=== PATIENT | female | born 1960 | race Caucasian/White ===

== ENCOUNTER 2017-01-22 11:33 | Outpatient (CLI) | payer OTHER ==
--- NOTE | 2017-01-22 23:34 | Diagnostic Imaging Report ---
ASHU RODRIGUEZ [facility] [address] [facility] [address] [address] Report Submission Date: Jan 22, 2017 1:25:27 PM CDT Patient Study Name: NIMISHA PEREZ Date: Jan 22, 2017 11:55:57 AM CDT Modality Type: US Gender: F Description: UNILAT LTD STDY EXT VEINS : 58 Institution: [facility] Physician: ASHU RODRIGUEZ Duplex imaging of the left lower extremity Clinical history: Swelling and redness for 2 weeks. Rule out deep venous thrombosis. Technique: Real time sonography of the left lower extremity is performed in transverse and longitudinal views. Doppler interrogation and color flow imaging are additionally used. Findings: There are normal Doppler waveforms in the interrogated vessels with normal respiratory fluctuation and augmentation. No echogenic thrombus is identified within the vessel lumen. The veins compress normally. Interstitial edema is evident in the calf. Impression: 1. No evidence of deep venous thrombosis. 2. Interstitial edema in the calf. Electronically signed on Jan 22, 2017 1:25:27 PM CDT by: Billy LOCKE
== END 2017-01-22 11:34 ==
LOC: RAD 11:33
PROVIDERS: ATTEND Family Medicine
DX: M79.89 Other specified soft tissue disorders (principal)
CPT/HCPCS: 93971

== ENCOUNTER 2017-03-05 22:20 | Observation (INO) | payer BC, OTHER ==
[2017-03-05] MEDS ORDERED: IPRATROPIUM/ALBUTEROL SULFATE 3 ML AMPUL.NEB NEB ONE (22:30)
[2017-03-05] MEDS ORDERED: methylPREDNISolone SOD SUCC 125 MG/2 ML VIAL ONE (22:39)
[2017-03-05 23:07] LABS: MEAN CORPUSCULAR HEMOGLOBIN 30.6 pg (28.0-34.0); MEAN CORPUSCULAR VOLUME 89.8 fl (80.0-100.0)
[2017-03-05 23:17] LABS: eGFR (African) > 60; eGFR (Non-African) > 60
[2017-03-05] MEDS ORDERED: 0.9 % SODIUM CHLORIDE 500 ML IV ONE (23:28)
--- NOTE | 2017-03-06 01:02 | Diagnostic Imaging Report ---
RAMOS GIANG- GINGER [address] [facility] [address] [place], [place]. [address] Report Submission Date: Mar 05, 2017 11:28:10 PM CDT Patient Study Name: NIMISHA PEREZ Date: Mar 05, 2017 11:14:46 PM CDT Modality Type: CR Gender: F Description: CHEST : 58 Institution: Physician: RAMOS GIANG- ED Chest, 2 view History: SOB, WORSENED TODAY Findings: The heart size is normal. The lungs are clear are hyperinflated. There is no pleural effusion or pneumothorax identified. The osseous structures are normal. Impression: 1. No acute pulmonary disease. 2. Lung hyperinflation. Electronically signed on Mar 05, 2017 11:28:10 PM CDT by: Abraham LOCKE
--- NOTE | 2017-03-06 01:19 | ED Physician Documentation ---
Dyspnea - HISTORIAN Historian: patient - HPI Chief Complaint: Dyspnea Additional Information: Pt is a 56 yo female that presents via EMS for increasing SOB beginning this morning. Pt has significant history of COPD requiring O2 supplementation at night and PRN. States she woke up this morning with a minimally productive cough of white sputum and states she has progressively gotten more SOB as the day has gone on. She reports subjective fever but is afebrile upon arrival. Denies chest pain and N/V. Denies history of heart attack or CHF. Was given Duoneb in route with mild relief of symptoms. Pt continues to smoke cigarettes. Onset: hours Duration: continues in ED Initiating Event: upper respiratory illness Severity: moderate Associated Symptoms: fever (subjective), productive cough. denies: sweating, chest pain, chest discomfort, leg pain, calf pain, dizziness - ROS CONST: no problems EYES/ENT: none GI/: none MS/SKIN/LYMPH: none - PAST HX Lung Disease: asthma, COPD Cardiac Disease: none PE Risk Factors: denies: hx DVT, leg swelling, hx of PE Surgeries/Procedures: none Other History: none Allergies/Adverse Reactions: Allergies Allergy/AdvReac Type Severity Reaction Status Date / Time No Known Drug Allergies Allergy Verified 03/05/17 22:37 - SOCIAL HX Smoking History: cigarettes - FAMILY HX Family History: no significant history - REVIEWED ASSESSMENTS Nursing Assessment Reviewed: Yes Vitals Reviewed: Yes Progress - Progress Progress: Pt reports feeling a little better after a second Duoneb and Solu-Medrol. States she is breathing easier. Pt reports that she is feeling better but is still requiring continuous supplemental oxygen. While the patient does have oxygen at home - she would not have oxygen to get to her house, which is a [address] Had long discussion with patient and family and at this point I think an admission for observation overnight would be best for the patient. She and her family are understanding and agreeable. - EKG/XRAY/CT EKG: rhythm (tachycardic - 103bpm), no ST T wave changes XRAY: chest Xray Comments: No acute process, hyperinflation of lungs ED Results Lab/Radiology - Orders Orders: ED Orders Category Date Time Status CHEST P.A.&LAT 2 VIEWS [RAD] Stat Exams 03/05/17 Ordered CBC/PLATELET/DIFF Routine Lab 03/05/17 Ordered CMP Routine Lab 03/05/17 Ordered CREATINE KINASE Routine Lab 03/05/17 Ordered PT-INR Routine Lab 03/05/17 Ordered Ipratropium/Albuterol Sulfate [Duoneb] Med 03/05/17 22:30 Discontinued 3 ml NEB NOW ONE methylPREDNISolone SOD SUCC [Solu-MEDROL] 125 mg Med 03/05/17 22:31 Active 0.9 % Sodium Chloride [Sodium Chloride] 100 ml IV NOW EKG WITH COMPARISON Stat Ther 03/05/17 Ordered Dyspnea Physical Exam - EXAM General Appearance: mild distress EENT: pharynx normal, dry mucous membranes Neck: nml inspection Respiratory: speaks full sentences, decreased air movement, wheezes (throughout) CVS: no murmur, pulses equal, tachycardia Skin: skin rash (bilateral lower legs - present for one month) Extremities: non-tender, normal range of motion Neuro/Psych: oriented x3 Discharge Clincal Impression: COPD with acute exacerbation Condition: Stable Disposition: ADMITTED INPATIENT Decision to Admit: [id number] Decision Time: 00:46
[2017-03-06] MEDS ORDERED: IPRATROPIUM/ALBUTEROL SULFATE 3 ML AMPUL.NEB NEB PRN (01:35)
[2017-03-06] MEDS ORDERED: LEVOFLOXACIN 500 MG TABLET PO ONE ×2 (01:35→01:45)
[2017-03-06 02:02] VITALS: BMI 29.9
[2017-03-06] MEDS ORDERED: LEVOTHYROXINE SODIUM 25 MCG TABLET ONE (03:55)
[2017-03-06] MEDS ORDERED: predniSONE 20 MG TABLET PO ONE (03:55)
[2017-03-06] MEDS ORDERED: LEVOTHYROXINE SODIUM PO SCH ×2 (07:00→09:00)
--- NOTE | 2017-03-06 08:06 | Discharge Summary ---
Discharge Summary - Discharge Sumary Condition at Discharge: Stable Consultations this Visit: None Procedures this Visit: None Allergies/Adverse Reactions: Allergies Allergy/AdvReac Type Severity Reaction Status Date / Time No Known Drug Allergies Allergy Verified 03/05/17 22:37 Patient Problems: Current Active Problems Problem Status Onset COPD with acute exacerbation Acute Nicotine abuse Acute - Final Diagnosis (1) COPD with acute exacerbation Right or Left: Left, Right (2) Nicotine abuse Right or Left: Left, Right
[2017-03-06 08:45] VITALS: BP 125/69
[2017-03-06] MEDS ORDERED: FLUTICASONE/SALMETEROL 500-50 INHALER IH SCH (09:00)
[2017-03-06] MEDS ORDERED: predniSONE 10 MG TABLET PO SCH (09:00)
[2017-03-06 09:43] LABS: EOSINOPHILS % 1 % (0-7); MONOCYTES % 4 % (0-11); SEGMENTED NEUTROPHILS % 78 % (39-79)
== END 2017-03-06 11:00 | disposition home or self-care (01) ==
LOC: ED 22:20 → SOUTH 03-06 01:01
PROVIDERS: ADMIT Emergency Medicine; ATTEND Emergency Medicine
DX: J44.1 Chronic obstructive pulmonary disease with (acute) exacerbation (principal); F17.210 Nicotine dependence, cigarettes, uncomplicated
CPT/HCPCS: 71020; 80053; 82550; 85025; 85610; 93005; G0378; J2930; J7060; J7512; 96374; 96376; 99283; 99284

== ENCOUNTER 2017-07-08 14:36 | Outpatient (CLI) | payer OTHER ==
[2017-07-08 15:14] LABS: eGFR (African) > 60; eGFR (Non-African) > 60
== END 2017-07-08 14:37 ==
LOC: LAB 14:36
PROVIDERS: ATTEND Family Medicine
DX: Z86.39 Personal history of other endocrine, nutritional and metabolic disease (principal)
CPT/HCPCS: 36415; 80053

== ENCOUNTER 2017-08-18 14:07 | Outpatient (CLI) | payer OTHER ==
--- NOTE | 2017-08-18 15:32 | Diagnostic Imaging Report ---
BRAULIO WATKINS [facility] [address] [facility] [address] [place] [address]. [id number] Report Submission Date: Aug 18, 2017 3:30:24 PM [employer]ES [employer]PRESENT[employer]IVE [employer] Patient Study Name: NIMISHA PEREZ Date: Aug 18, 2017 2:14:15 PM [employer] Modality Type: CR Gender: F Description: CHEST : 58 Institution: [facility] Physician: BRAULIO WATKINS Chest, 2 view History: SHORTNESS OF BREATH AND COUGH X 4 DAYS, COPD, SMOKER Findings: Comparison is made to exam dated 03/05/2017. The heart size is normal. The lungs are hyperinflated. Possible nodule seen within the right upper lobe measuring 1.7 cm There is no pleural effusion or pneumothorax identified. The osseous structures are normal. Impression: 1. No acute pulmonary disease. 2. Emphysematous changes with possible nodule within the right upper lobe; however, this could also represent prominent costochondral cartilage of the 1st rib. 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
== END 2017-08-18 14:10 ==
LOC: RAD 14:07
PROVIDERS: ATTEND Physician Assistant
DX: J44.9 Chronic obstructive pulmonary disease, unspecified (principal)
CPT/HCPCS: 71020

== ENCOUNTER 2017-09-05 11:57 | Outpatient (CLI) | payer OTHER ==
--- NOTE | 2017-09-17 11:07 | CONSULTATION REPORT ---
REFERRING PHYSICIAN/PCP: JOSIAH Comer CONSULTING PHYSICIAN: Sandee Pino MD CHIEF COMPLAINT: "I am having difficulty breathing and I have a cough." PROBLEM LIST: 1. Chronic obstructive pulmonary disease (COPD), on home oxygen at 3 liters per nasal cannula. 2. Obstructive sleep apnea: Currently not using a CPAP. 3. Current tobacco use. HISTORY OF PRESENT ILLNESS: This is a 56-year-old female who states she does have a previous history of COPD and on September 01, she developed more shortness of breath and cough. She went to see her primary care provider and they initiated a prednisone taper and Augmentin. Patient states that this is currently helping her. She is now on prednisone 20 mg per day. In the recent past, she has also been given Augmentin and Bactrim as antibiotics , along with a prednisone taper. Recently, she was given Spiriva samples which she states she likes but that her insurance no longer covers it. She has had a history of thrush and takes nystatin p.r.n. She does have home oxygen at 3 liters per nasal cannula which she states she uses at night and as needed during the day. She admits that she does have a diagnosis of obstructive sleep apnea, but she does not like a CPAP and cannot afford it. She does respond to prednisone tapers but is mainly off prednisone. There has been no history of hemoptysis. She does have a cough currently productive of light lara sputum. Her energy level is okay. Her weight is stable. Appetite is good. She does have complaints of GERD and also a postnasal drip. She states that occasionally she notices lower extremity edema. She denies chest pain. She denies PND. No fever, chills, or sweats. No history of asthma and no history of DVTs. She does state she has been treated twice at [facility] for pneumonia. She is a current tobacco user of up to 2 packs per day. She has been smoking for many, many years. Her also smokes on a daily basis. After the patient's visit was over, I received some of the outside documents that I requested and I will summarize currently what I have received: 1. This is from [facility], Polysomnography done on 07/07: The patient has obstructive sleep apnea with an AHI of 6.6 per hour. A minimum oxygen saturation was 82%. The average oxygen saturation was 90%. 2. [facility], CPAP titration study done on 12/08/2014: Patient was observed to have a CPAP setting of 12 and it was the best response to her obstructive sleep apnea. The AHI went to 1.2 and her minimum oxygen saturation was 88%. The recommendations from her physician was an auto-PAP machine with a range from 8 to 12 cm of water. 3. [facility], Nuclear Medicine Lexiscan myocardial perfusion on 03/10/2014: Essentially normal. Ejection fraction of 60% without any regional wall motion abnormalities. REVIEW OF SYSTEMS: Please see HPI for pertinent review of systems. Please also see [facility] patient intake record. MEDICATIONS: 1. Vitamin B12. 2. Iron supplement. 3. Vitamin D. 4. Magnesium. 5. Potassium. 6. Advair 500/50 one puff twice a day. 7. Albuterol HFA 2 puffs 4 times a day. 8. DuoNeb via nebulizer 4 times a day. 9. Levothyroxine 75 mcg per day. 10. Levalbuterol 2 puffs 4 times a day. 11. Augmentin. 12. Prednisone taper. 13. Mucinex 3 times a day. 14. Ranitidine p.r.n. ALLERGIES: No known allergies, however, drug intolerance to the quinolones: Leg pain. SOCIAL HISTORY: Currently not working outside the home. She lives with her who is also a smoker. 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 FAMILY HISTORY: Mother with heart disease. Father with cancer: Type unknown. PHYSICAL EXAMINATION: VITAL SIGNS: BP: 141/65, P: 101, R: 20, T: 98.1, oxygen saturation is 92% on room air. Height: 5 feet 3 inches. Weight: 166 pounds. BMI of 29.4. GENERAL: This is a well-developed, well-nourished female in no acute distress speaking in full sentences. HEENT: Pupils equal. Oropharynx: Clear. No thrush. Neck: Supple. No adenopathy. Trachea midline. AXILLARY: No lymphadenopathy. Lungs: Bilateral equal air movement. An occasional wheeze bilaterally. No crackles. Cardiac: Tachycardia. Rate and rhythm are regular. S1 and S2 without S3 and S4. No murmur, rubs, or gallops. Abdomen: Soft and nontender. Positive bowel sounds. Extremities: No cyanosis, clubbing, or edema. Neurologic: Alert and oriented x3. Normal gait. Grossly nonfocal exam. IMAGING: All imaging independently reviewed by me personally. Chest x-ray on 08-18-17: Peribronchial cuffing. Flat diaphragm. Enlarged retrosternal air space. ASSESSMENT AND PLAN: PROBLEM #1: Chronic obstructive pulmonary disease (COPD) very obvious by history and most current chest x-ray. Bronchodilator therapy is not optimized because she states that she cannot afford the anticholinergic long-acting bronchodilators such as Spiriva. PLAN: 1. Continue current Advair dose of 500/50 b.i.d. 2. Continue current DuoNeb nebulizers. 3. Continue the use of rescue inhalers, although there is no need for both albuterol and levalbuterol. She was instructed to choose one or the other. 4. Schedule a PFT here at [facility]. 5. Obtain PFT from [facility]. 6. Obtain pulmonary outpatient records from [facility]. 7. Obtain [facility] inpatient records from November 2013 and August 2015. PROBLEM #2: Obstructive sleep apnea. This has been confirmed in reviewing the old records with a sleep study and CPAP titration done at [facility]. At present, the patient is not using her CPAP. PLAN: 1. We will discuss this issue again at the next visit. 2. Tachycardia. I explained to the patient that she is taking an excessive amount of beta-agonist that is contained in her Advair, in her DuoNeb, and her ProAir and levalbuterol. 3. As discussed in problem #1, continue Advair and DuoNeb. 4. For a rescue inhaler, choose between albuterol (ProAir) and the levalbuterol. PROBLEM #3: Current tobacco use. Patient states that she has tried to quit in the past, however, has not been successful. She states that she used Chantix but had side effects from it. She has never been on an antidepressant per se and has not been on Wellbutrin in particular. PLAN: 1. Patient encouraged to cut down on her smoking. 2. I have brought up the issue of Wellbutrin that can sometimes be helpful in smokers. 3. Perhaps another antidepressant may also be helpful to perhaps give her the energy to quit tobacco. PROBLEM #4: Pulmonary prevention. Patient is current with both her Pneumonia shots and her flu shot. PLAN: Patient to return in 2 months. cc: JOSIAH Comer
== END 2017-09-05 12:00 ==
LOC: PULMONARY 11:57
PROVIDERS: ATTEND Internal Medicine Pulmonary Disease
DX: J44.9 Chronic obstructive pulmonary disease, unspecified (principal); G47.33 Obstructive sleep apnea (adult) (pediatric); Z72.0 Tobacco use
CPT/HCPCS: 99213; 99214

== ENCOUNTER 2018-04-21 12:47 | Emergency (ER) | payer OTHER ==
--- NOTE | 2018-04-21 13:02 | ED Physician Documentation ---
Dyspnea - HISTORIAN Historian: patient - HPI Chief Complaint: Dyspnea Additional Information: 57yo white female with 4-5 day history of SOB, cough productive of light lara color, no blood noted. Has a history of COPD and asthma. No precipitating factor noted. No fever or chills noted. Has nebulizer at home and is using it 4- 5 times a day. Has noc oxygen but has been wearing it during the day now at 3 liters. No chest pain noted. - ROS CONST: no problems EYES/ENT: none GI/: none NEURO/PSYCH: denies: headache MS/SKIN/LYMPH: none - PAST HX Lung Disease: asthma, COPD Cardiac Disease: none PE Risk Factors: none, leg swelling Surgeries/Procedures: none Other History: none Allergies/Adverse Reactions: Allergies Allergy/AdvReac Type Severity Reaction Status Date / Time No Known Drug Allergies Allergy Verified 03/05/17 22:37 ciprofloxacin [From Cipro] AdvReac No Reaction Verified 04/21/18 13:14 Home Medications: Ambulatory Orders Medication Instructions Recorded Cephalexin [Keflex] 500 mg PO BID 04/21/18 Levofloxacin [Levaquin] 500 mg PO D #10 tablet 04/21/18 Prednisone [Prednisone] 10 mg PO BID 04/21/18 predniSONE [Deltasone] 10 mg PO DIRECTED #36 tablet 04/21/18 - SOCIAL HX Smoking History: greater than 1 pack/day Alcohol Use: none Drug Use: none - FAMILY HX Family History: other (DM) - VITAL SIGNS Vital Signs: Vital Signs Temp Pulse Resp BP Pulse Ox 125/69 03/06/17 08:43 - REVIEWED ASSESSMENTS Nursing Assessment Reviewed: Yes Vitals Reviewed: Yes Progress - EKG/XRAY/CT EKG: NSR, rhythm, no ST T wave changes Comments: normal EKG ED Results Lab/Radiology - Radiology Radiology Impressions: PA and lateral chest History: Dyspnea PA and lateral chest dated April 21, 2018 demonstrates hyperinflation consistent with COPD. Pulmonary vascularity is normal. There is no confluent infiltrate or pleural effusion. Impression: COPD. No active disease. - Orders Orders: ED Orders Category Date Time Status Ipratropium/Albuterol Sulfate [Duoneb] Med 04/21/18 12:56 Discontinued 3 ml NEB .STK-MED ONE Dyspnea Physical Exam - EXAM General Appearance: alert, moderate distress EENT: no signs of dehydration Respiratory: speaks full sentences, respiratory distress, prolonged expirations , wheezes (bilateral), rales (bilateral). No: retractions CVS: reg. rate & rhythm, no murmur, no gallop, no friction rub Abdomen: non-tender, no organomegaly, no distention, no ascites Skin: color nml, no rash Extremities: non-tender, normal range of motion, no evidence of injury, edema ( trace) Neuro/Psych: oriented x3, CN's nml as tested, motor nml, sensation nml, mood/ affect nml Discharge Clincal Impression: COPD with acute exacerbation, Bronchitis Referrals: Amina David MD [Primary Care Provider] - 2 Days Additional Instructions: Continue taking nebulized treatment every 4 hours for the next 24-48 hours. Start prednisone as directed. Start levaquin once a day for the next 10 days. Condition: Stable Disposition: 01 HOME, SELF-CARE Decision to Admit: NO Date of Decison to Admit: 04/21/18 Decision Time: 14:14
[2018-04-21] MEDS: IPRATROPIUM/ALBUTEROL SULFATE 3 ML AMPUL.NEB NEB ONE ×2 (13:20→13:22)
[2018-04-21] MEDS: methylPREDNISolone SOD SUCC 125 MG/2 ML VIAL ONE (13:22)
[2018-04-21 13:30] LABS: BASOPHILS % 0.3 (0.0-1.5); EOSINOPHILS % 0.5 % (0.0-6.8); MEAN CORPUSCULAR HEMOGLOBIN 30.4 pg (28.0-34.0); MEAN CORPUSCULAR VOLUME 90.2 fl (80.0-100.0); MONOCYTES % 7.8 % (0.0-11.0); NEUTROPHILS # 5.4 # k/uL (1.4-7.7)
[2018-04-21] MEDS: methylPREDNISolone SOD SUCC 125 MG/2 ML VIAL IVP ONE (13:39)
[2018-04-21 13:48] LABS: eGFR (African) > 60; eGFR (Non-African) > 60
[2018-04-21 14:58] VITALS: BP 155/84
--- NOTE | 2018-04-21 16:37 | Diagnostic Imaging Report ---
NANDA MANDUJANO [facility] [address] [facility] [address] Report Submission Date: Apr 21, 2018 1:47:47 PM CDT Patient Study Name: NIMISHA PEREZ Date: Apr 21, 2018 1:16:00 PM CDT Modality Type: DX Gender: F Description: CHEST : 58 Institution: [facility] Physician: NANDA MANDUJANO PA and lateral chest History: Dyspnea PA and lateral chest dated April 21, 2018 demonstrates hyperinflation consistent with COPD. Pulmonary vascularity is normal. There is no confluent infiltrate or pleural effusion. Impression: COPD. No active disease. Electronically signed on Apr 21, 2018 1:47:47 PM CDT by: Yuki LOCKE
[2018-04-22 07:43] LABS: APPEARANCE,URINE CLEAR (CLEAR); COLOR,URINE YELLOW (YELLOW); OCCULT BLOOD,URINE NEGATIVE (NEGATIVE); UROBILINOGEN URINE 0.2 Eu (0.2-1.0)
== END 2018-04-21 14:50 | disposition home or self-care (01) ==
LOC: ED 12:47
DX: J44.1 Chronic obstructive pulmonary disease with (acute) exacerbation (principal); J40 Bronchitis, not specified as acute or chronic
CPT/HCPCS: 71046; 80053; 81002; 85025; 85379; 87040; 93005; 94640; 96374; 99284; 99285; J2930; S1016

== ENCOUNTER 2018-04-24 23:33 | Emergency (ER) | payer OTHER ==
[2018-04-24] MEDS ORDERED: IPRATROPIUM/ALBUTEROL SULFATE 3 ML AMPUL.NEB NEB ONE ×2 (23:37→23:40)
[2018-04-24] MEDS ORDERED: HYDROCORTISONE SODIUM SUCC IVP ONE (23:41)
--- NOTE | 2018-04-24 23:45 | ED Physician Documentation ---
Dyspnea - HISTORIAN Historian: patient - HPI Chief Complaint: Dyspnea Additional Information: exab copd cough occ prod brownish. seen here few days ago DR MANDUJANO given levaquin alb steroid-PT STILL SMOKES 1PLUS PPD Onset: days ago (11-2) Duration: continues in ED Initiating Event: exposure to smoke. denies: out of meds Severity: moderate Exacerbated By: exertion, laying flat, coughing Associated Symptoms: none - ROS CONST: no problems. denies: recent illness, weakness EYES/ENT: denies: problems with vision, sore throat GI/: denies: abdominal pain, problems urinating, vomiting, nausea MS/SKIN/LYMPH: none. denies: muscle aches, swollen glands - PAST HX Lung Disease: COPD Allergies/Adverse Reactions: Allergies Allergy/AdvReac Type Severity Reaction Status Date / Time No Known Drug Allergies Allergy Verified 04/24/18 23:46 ciprofloxacin [From Cipro] AdvReac No Reaction Verified 04/24/18 23:46 Home Medications: Ambulatory Orders Medication Instructions Recorded Levofloxacin [Levaquin] 500 mg PO D #10 tablet 04/21/18 predniSONE [Deltasone] 10 mg PO DIRECTED #36 tablet 04/21/18 - SOCIAL HX Smoking History: greater than 1 pack/day (since age 12) Alcohol Use: none Drug Use: none - FAMILY HX Family History: no significant history - VITAL SIGNS Vital Signs: Vital Signs Temp Pulse Resp BP Pulse Ox 155/84 04/21/18 14:56 - REVIEWED ASSESSMENTS Nursing Assessment Reviewed: Yes Vitals Reviewed: Yes ED Results Lab/Radiology - Orders Orders: ED Orders Category Date Time Status Hydrocortisone Sodium Succ/Pf [Solu-CORTEF] Med 04/24/18 23:41 Once 500 mg IVP NOW ONE Ipratropium/Albuterol Sulfate [Duoneb] Med 04/24/18 23:37 Discontinued 3 ml NEB .STK-MED ONE Ipratropium/Albuterol Sulfate [Duoneb] Med 04/24/18 23:40 Once 3 ml NEB NOW ONE Oxygen Daily Oxygen 04/24/18 23:45 Ordered Dyspnea Physical Exam - EXAM General Appearance: mild distress EENT: eye inspection normal. No: dullness Neck: nml inspection Respiratory: respiratory distress (slight) CVS: reg. rate & rhythm, no murmur Abdomen: non-tender, no distention Skin: color nml, no rash. No: cyanosis, diaphoresis, pallor, ecchymosis, skin rash Extremities: non-tender, normal range of motion Neuro/Psych: oriented x3, motor nml, sensation nml, mood/affect nml Discharge Clincal Impression: nicotine abuse, copd ac exab Referrals: Amina David MD [Primary Care Provider] - 2 Days Comments: DC CIGARETTES Condition: Fair Disposition: HOME, SELF-CARE Decision to Admit: NO Decision Time: 00:34
[2018-04-25] MEDS ORDERED: IPRATROPIUM/ALBUTEROL SULFATE 3 ML AMPUL.NEB NEB ONE (00:06)
[2018-04-25] MEDS ORDERED: methylPREDNISolone SOD SUCC 40 MG/ML VIAL ONE (00:08)
[2018-04-25] MEDS ORDERED: BUDESONIDE 0.5MG/2ML AMPUL.NEB NEB ONE (00:34)
[2018-04-25] MEDS ORDERED: BUDESONIDE 0.5MG/2ML AMPUL.NEB NEB SCH (01:00)
[2018-04-25 04:16] VITALS: BP 153/56
== END 2018-04-25 01:45 | disposition home or self-care (01) ==
LOC: ED 23:33
DX: J44.1 Chronic obstructive pulmonary disease with (acute) exacerbation (principal); F17.200 Nicotine dependence, unspecified, uncomplicated
CPT/HCPCS: J2920; J7626; 94640; 96374; J1030

== ENCOUNTER 2019-08-31 19:43 | Emergency (ER) | payer BC ==
--- NOTE | 2019-08-31 19:50 | ED Physician Documentation ---
General Adult - VITAL SIGNS Vital Signs: Vital Signs Temp Pulse Resp BP Pulse Ox 97.6 F 120 H 20 175/81 94 08/31/19 19:48 08/31/19 19:48 08/31/19 19:48 08/31/19 19:48 08/31/19 19:48 - REVIEWED ASSESSMENTS Nursing Assessment Reviewed: Yes Vitals Reviewed: Yes <Riccardo Rosas - Last Filed: 09/01/19 00:57> - HISTORIAN Historian: patient - HPI Stated Complaint: SOB Chief Complaint: Dyspnea Additional Information: %(yo female with history of COPD with 4 day history of increasing SOB, cough, productive of white phlegm, no blood, no fever or chills noted. Has been wheezing more then baseline. SaO2 92% off oxygen. Normally is on 95% off oxygen. Has been having some nasal drainage, mild sore throat. Using Duo neb more frequently. Having to use supplemental oxygen more. Saw Khadra Robert yesterday and started on prednisone (took 30mg today) and bactrim. Onset: days ago Timing: still present Severity: mild - ROS CONST: denies: fever, sweating, chills CVS/RESP: chest pain (back), shortness of breath, cough - PAST HX Past History: other (prediabetic) Other History: none Surgeries/Procedures: none Immunizations: influenza, pneumovax (prevnar 13) - SOCIAL HX Smoking History: greater than 1 pack/day (2ppd) Drug Use: none - FAMILY HX Family History: No - VITAL SIGNS Vital Signs: Vital Signs Temp Pulse Resp BP Pulse Ox 168/58 02/04/19 18:30 <Umberto James - Last Filed: 09/06/19 08:30> - PAST HX Allergies/Adverse Reactions: Allergies Allergy/AdvReac Type Severity Reaction Status Date / Time ciprofloxacin [From Cipro] AdvReac No Reaction Verified 09/05/19 16:30 Home Medications: Ambulatory Orders Medication Instructions Recorded Albuterol Sulfate [Proair Hfa] 2 puff PO QID PRN 08/31/19 Cetirizine HCl [24Hour Allergy] 10 mg PO HS 08/31/19 Montelukast Sodium [Singulair] 10 mg PO DAILY 08/31/19 Tiotropium [place] [Spiriva] 1 puff PO DAILY 08/31/19 Progress - Progress Progress: Duoneb HFN Solu-medrol 125 mg IV Albuterol HFN improved Pt started Bactrim yesterday. She says she had been tx'd with Bactrim a short time ago, several weeks ago. Also says that she had been tx'd effectively with Azithromycin in the past and would prefer Azithromycin. Azithromycin 500 mg po in ER Rx Azithromycin 250 mg po qd x 5 days. continue prednisone as rx'd and inhaler meds. (Pt has had influenza vaccine.) <Riccardo Rosas - Last Filed: 09/01/19 00:57> ED Results Lab/Radiology - Lab Results Lab Results: Lab Results 08/31/19 08/31/19 20:22 20:20 WBC 14.60 K/ul H K/ul (4.00-12.00) RBC 5.17 M/ul M/ul (3.90-5.20) Hgb 15.3 g/dL g/dL (11.5-16.0) Hct 46.8 % H % (34.5-46.5) MCV 90.0 fl fl (80.0-100.0) MCH 29.5 pg pg (28.0-34.0) MCHC 32.6 g/dL g/dL (30.0-36.0) RDW 12.6 % % (11.3-14.3) Plt Count 265 K/mm3 K/mm3 (130-400) Neut % (Auto) 88.5 % H % (39.0-79.0) Lymph % (Auto) 5.5 % L % (16.0-50.0) [place] % (Auto) 4.8 % % (0.0-11.0) Eos % (Auto) 0.9 % % (0.0-6.8) Baso % (Auto) 0.3 % % (0.0-1.5) Neut # (Auto) 12.9 # k/uL H # k/uL (1.4-7.7) Lymph # (Auto) 0.8 # k/uL # k/uL (0.6-4.0) [place] # (Auto) 0.7 # k/uL # k/uL (0.0-0.9) Eos # (Auto) 0.1 # k/uL # k/uL (0.0-0.6) Baso # (Auto) 0.0 # k/uL # k/uL (0.0-0.5) Sodium 143 mmol/L mmol/L (137-145) Potassium 4.0 mmol/L mmol/L (3.5-5.1) Chloride 102 mmol/L mmol/L (98-107) Carbon Dioxide 29 mmol/L mmol/L (22-30) Anion Gap 16.0 BUN 9 mg/dL mg/dL (7-17) Creatinine 0.73 mg/dL mg/dL (0.52-1.04) Estimated Creat Clear 113 Est GFR ( Amer) > 60 (60 - ) Est GFR (Non-Af Amer) > 60 (60 - ) Glucose 144 mg/dL H mg/dL (74-106) Calcium 10.4 mg/dL H mg/dL (8.4-10.2) Total Bilirubin 0.7 mg/dL mg/dL (0.2-1.3) AST 29 U/L U/L (15-46) ALT 22 U/L U/L (0-35) Alkaline Phosphatase 91 U/L U/L (38-126) Total Protein 8.6 g/dL H g/dL (6.3-8.2) Albumin 5.0 g/dL g/dL (3.5-5.0) - Orders Orders: ED Orders Category Date Time Status CHEST 2VIEW [RAD] Routine Exams 08/31/19 Taken CBC/PLATELET/DIFF Routine Lab 08/31/19 20:22 Completed CMP Routine Lab 08/31/19 20:20 Completed Ipratropium/Albuterol Sulfate [Duoneb] Med 08/31/19 21:22 Discontinued 3 ml NEB NOW ONE methylPREDNISolone SOD SUCC [SOLU-Medrol] Med 08/31/19 20:04 Discontinued 125 mg IVP NOW ONE Oxygen Daily Oxygen 08/31/19 20:15 Ordered <Riccardo Rosas Last Filed: 09/01/19 00:57> General Adult Physical Exam - PHYSICAL EXAM GENERAL APPEARANCE: moderate distress EENT: pharynx normal NECK: normal inspection, supple RESPIRATORY: wheezes CVS: tachycardia ABDOMEN: soft, no organomegaly, normal bowel sounds BACK: normal inspection, no CVA tenderness SKIN: warm/dry, normal color EXTREMITIES: non-tender, normal range of motion, no evidence of injury, no edema NEURO: oriented X3, motor nml, sensation nml <Riccardo Rosas - Last Filed: 09/01/19 00:57> Discharge Decision to Admit: NO Decision Time: 23:50 <Riccardo Rosas - Last Filed: 09/01/19 00:57> <Umberto James - Last Filed: 09/06/19 08:30> Clincal Impression: COPD exacerbation, Bronchitis Referrals: Khadra Robert FNP [Primary Care Provider] - 2 Days Condition: Stable Disposition: 01 HOME, SELF-CARE
[2019-08-31] MEDS ORDERED: methylPREDNISolone SOD SUCC 125 MG/2 ML VIAL IVP ONE (20:04)
[2019-08-31 20:23] LABS: BASOPHILS % 0.3 % (0.0-1.5); NEUTROPHILS # 12.9 # k/uL (1.4-7.7)
[2019-08-31 20:35] LABS: eGFR (Non-African) > 60
[2019-08-31] MEDS ORDERED: IPRATROPIUM/ALBUTEROL SULFATE 3 ML AMPUL.NEB NEB ONE (21:22)
[2019-08-31] MEDS ORDERED: ALBUTEROL SULFATE 2.5 MG/3 ML AMPUL.NEB NEB ONE (22:45)
[2019-08-31] MEDS ORDERED: AZITHROMYCIN 250 MG TABLET PO ONE (23:27)
[2019-08-31 23:57] VITALS: BP 151/76
--- NOTE | 2019-09-01 10:01 | Diagnostic Imaging Report ---
[facility] \[id number] [facility] [address] Patient Name: NIMISHA PEREZ Referring Physician: Umberto James Date of : 1960 Gender: F Date of Service: 08/31/2019 Exam Requested: CHEST 2VIEW Chest 2 views Date of Exam: August 31, 2019. History: SHORTNESS OF AIR (Hx) / Findings: The cardiac and mediastinal silhouettes are normal. There are chronic emphysematous changes and bibasilar atelectasis. The trachea is midline and aortic arch contour is normal. The pulmonary vascularity is within normal limits. Impression: Chronic emphysematous changes and bibasilar atelectasis. [place]
== END 2019-08-31 23:44 | disposition home or self-care (01) ==
LOC: ED 19:43
DX: J44.1 Chronic obstructive pulmonary disease with (acute) exacerbation (principal)
CPT/HCPCS: 80053; 85025; J2930; S1016

== ENCOUNTER 2019-09-05 16:10 | Emergency (ER) | payer BC ==
--- NOTE | 2019-09-05 16:33 | ED Physician Documentation ---
Dyspnea - HPI Stated Complaint: c/o difficulty exhaling Chief Complaint: Dyspnea Additional Information: 58 year old female presents with hx of COPD; was seen on 08/30/19 by PCP and again on 08/31/19 in the ER for COPD sx's. She states that she can breathe in easily but exhaling is a problem. She is able to speak full sentences; just finished her Z-Pack; she is still on Prednisone from PCP; she is doing her Duonebs every 4-6 hours; and she is 95% on 2L. She c/o low back pain from coughing. We discussed in great detail the effects that continuing to smoke 2 ppd will have effect on her. Onset: days ago Duration: better Initiating Event: upper respiratory illness Severity: mild Exacerbated By: laying flat, coughing Associated Symptoms: none - ROS CONST: recent illness EYES/ENT: none GI/: none MS/SKIN/LYMPH: none - PAST HX Lung Disease: COPD, other (2ppd tobacco use) Immunizations: UTD Allergies/Adverse Reactions: Allergies Allergy/AdvReac Type Severity Reaction Status Date / Time ciprofloxacin [From Cipro] AdvReac No Reaction Verified 09/05/19 16:30 Home Medications: Ambulatory Orders Medication Instructions Recorded Albuterol Sulfate [Proair Hfa] 2 puff PO QID PRN 08/31/19 Cetirizine HCl [24Hour Allergy] 10 mg PO HS 08/31/19 Montelukast Sodium [Singulair] 10 mg PO DAILY 08/31/19 Tiotropium [place] [Spiriva] 1 puff PO DAILY 08/31/19 - SOCIAL HX Smoking History: greater than 1 pack/day Alcohol Use: none Drug Use: none - FAMILY HX Family History: none - VITAL SIGNS Vital Signs: Vital Signs Temp Pulse Resp BP Pulse Ox 97.3 F L 109 H 18 120/74 95 09/05/19 16:24 09/05/19 16:24 09/05/19 16:24 09/05/19 16:24 09/05/19 16:24 - REVIEWED ASSESSMENTS Nursing Assessment Reviewed: Yes Vitals Reviewed: Yes Progress - Progress Progress: 17:00 Patient feeling much better after Pulmicort and duoneb 18:00 Went in and discussed further treatment with patient and the importance of stop smoking; became very rude and hateful; he states that "we haven't fixed her"; explained that COPD is not curable but we can help to make her more comfortable; states "I am not stupid" explained to spouse that was not my intention and then focused my attention to patient and explained breathing techniques, increasing protein in her diet (Premier drinks) she can sip on them all day. Follow up with PCP for referral to Pulmonology. ED Results Lab/Radiology - Orders Orders: ED Orders Category Date Time Status Budesonide [Pulmicort] Med 09/05/19 21:00 Ordered 0.5 mg NEB BID Ipratropium/Albuterol Sulfate [Duoneb] Med 09/05/19 16:30 Discontinued 3 ml NEB NOW ONE Ketorolac Tromethamine [Toradol] Med 09/05/19 16:30 Discontinued 60 mg IM NOW ONE Dyspnea Physical Exam - EXAM General Appearance: alert, mild distress EENT: eye inspection normal, ENT inspection normal, pharynx normal, no signs of dehydration, JEREMY Neck: nml inspection Respiratory: speaks full sentences, wheezes CVS: reg. rate & rhythm, no murmur, no gallop, pulses full, pulses equal Abdomen: non-tender Skin: color nml Extremities: normal range of motion Neuro/Psych: oriented x3, motor nml, sensation nml, mood/affect nml Discharge Clincal Impression: COPD exacerbation, Nicotine abuse Referrals: Khadra Robert FNP [Primary Care Provider] - 2 Days Additional Instructions: instructions given on breathing techniques to conserve oxygen Exhaling as long as she can Explained to cut back by 2-3 cigarettes a day increase water intake Protein drinks (Premier has 30g of protein and < 2g of carbs) Follow up with PCP; need referral to pulmonology Condition: Stable Disposition: 01 HOME, SELF-CARE Decision to Admit: NO Decision Time: 19:06
[2019-09-05] MEDS: IPRATROPIUM/ALBUTEROL SULFATE 3 ML AMPUL.NEB NEB ONE (16:43)
[2019-09-05] MEDS: KETOROLAC TROMETHAMINE 60 MG/2 ML VIAL IM ONE (16:43)
[2019-09-05] MEDS: BUDESONIDE 0.5MG/2ML AMPUL.NEB NEB ONE (16:59)
[2019-09-05 18:07] VITALS: BP 116/78
[2019-09-05] MEDS ORDERED: BUDESONIDE 0.5MG/2ML AMPUL.NEB NEB SCH (21:00)
== END 2019-09-05 17:37 | disposition home or self-care (01) ==
LOC: ED 16:10
DX: J44.1 Chronic obstructive pulmonary disease with (acute) exacerbation (principal); F17.210 Nicotine dependence, cigarettes, uncomplicated
CPT/HCPCS: 94640; 96372; 99282; 99284; J1885; J7626